=== PATIENT | male | born 1950 | race Caucasian/White ===

== ENCOUNTER 2018-06-03 16:26 | Inpatient (IN) ==
[2018-06-03 17:35] LABS: Basophils # 0.1 10*3/uL (0.0-0.2); Basophils % 0.5 % (0.0-0.8); Eosinophils # 0.2 10*3/uL (0.0-0.87); Eosinophils % 1.5 % (0.00-10.9); Hemoglobin 17.7 GM/DL (14.0-18.0); Immature Granulocytes % 0.3 %; Immature Granulocytes Absolute 0.03 #; Lymphocytes # 1.8 10*3/uL (1.4-4.0); Lymphocytes % 16.1 % (21.2-54.2); Mean Corpuscular Hemoglobin 32 PG (27-34); Mean Corpuscular Volume 94.5 FL (87-102); Mean Platelet Volume 8.6 FL (9.6-12.0); Monocytes # 0.7 10*3/uL (0.11-0.8); Monocytes % 6.3 % (1.7-12.7); Neutrophils # 8.2 10*3/uL (1.4-7.4); Neutrophils % 75.3 % (38.7-73.9); Platelet Count 233 T/CUMM (130-400); Red Cell Distribution Width 12.4 % (9.3-17.3); White Blood Count 10.9 T/CUMM (4-12)
[2018-06-03 17:41] LABS: Apearance,Urine CLEAR (Clear); Bilirubin,Urine Negative (Negative); Blood, Urine Negative (Negative); Glucose,Urine (UA) Negative (Negative); Ketones,Urine 20 mg/dL (Negative); Mucus,Urine Occasional /LPF (Occasional); Nitrite,Urine Negative (Negative); Protein,Urine Negative; RBC,Urine 3 /HPF (0-4); Urine Color Yellow (Yellow); Urine Specific Gravity 1.016 (1.001-1.035); Urine Urobilinogen < 2.0 EU/DL (0.2-1.0); WBC,Urine 1 /HPF (0-6)
[2018-06-03 18:00] LABS: Albumin 4.3 G/DL (3.4-5.0); Bilirubin,Total 0.7 MG/DL (0.2-1.0); Calcium 9.5 MG/DL (8.5-10.1); Osmolality,Calculated 282.4 MOS/KG (273-304); Potassium 4.4 MMOL/L (3.5-5.1); Total Protein 7.9 G/DL (6.4-8.3)
[2018-06-03] MEDS ORDERED: SODIUM CHLORIDE 0.9% 1,000 ML IV STA (18:18)
[2018-06-03] MEDS ORDERED: ONDANSETRON 4 MG/2 ML VIAL IV STA (18:18)
[2018-06-03] MEDS ORDERED: ONDANSETRON 4 MG/2 ML VIAL ONE ×2 (18:24→20:10)
[2018-06-03 19:16] LABS: Lactic Acid 1.1 MMOL/L (0.4-2.0)
[2018-06-03] MEDS ORDERED: DEXTROSE 5% LACTATED RINGERS 1,000 ML IV SCH (20:00)
[2018-06-03] MEDS ORDERED: MORPHINE 4 MG/1 ML VIAL ONE (20:10)
[2018-06-03] MEDS: MORPHINE 4 MG/1 ML VIAL IV PRN ×2 (20:17→23:48)
[2018-06-03] MEDS: LACTATED RINGERS 1,000 ML IV SCH (20:17)
[2018-06-03] MEDS: ONDANSETRON 4 MG/2 ML VIAL IV PRN ×2 (20:18→23:55)
[2018-06-04] MEDS: MORPHINE 4 MG/1 ML VIAL IV PRN ×4 (03:26→20:18)
[2018-06-04] MEDS: LACTATED RINGERS 1,000 ML IV SCH ×3 (03:31→23:08)
[2018-06-04 06:50] LABS: Basophils % 0.4 % (0.0-0.8); Eosinophils # 0.3 10*3/uL (0.0-0.87); Eosinophils % 3.5 % (0.00-10.9); Hematocrit 46.8 VOL% (42.0-52.0); Hemoglobin 15.2 GM/DL (14.0-18.0); Immature Granulocytes % 0.3 %; Immature Granulocytes Absolute 0.03 #; Lymphocytes # 2.1 10*3/uL (1.4-4.0); Mean Corpuscular HGB Conc 32.5 GM/DL (32-36); Mean Corpuscular Hemoglobin 31 PG (27-34); Mean Corpuscular Volume 94.9 FL (87-102); Mean Platelet Volume 8.6 FL (9.6-12.0); Monocytes # 0.9 10*3/uL (0.11-0.8); Monocytes % 10.5 % (1.7-12.7); Neutrophils # 5.6 10*3/uL (1.4-7.4); Neutrophils % 62.3 % (38.7-73.9); Platelet Count 206 T/CUMM (130-400); Red Blood Count 4.93 MC/CUMM (3.8-5.5); Red Cell Distribution Width 12.5 % (9.3-17.3)
[2018-06-04 07:24] LABS: Albumin 3.3 G/DL (3.4-5.0); Bilirubin,Total 0.9 MG/DL (0.2-1.0); Calcium 8.1 MG/DL (8.5-10.1); Osmolality,Calculated 282.3 MOS/KG (273-304); Potassium 4.2 MMOL/L (3.5-5.1); Total Protein 6.4 G/DL (6.4-8.3)
[2018-06-04] MEDS: ENOXAPARIN 40 MG/0.4 ML SYRINGE SUBCUT SCH (20:18)
[2018-06-05] MEDS: ACETAMINOPHEN 500 MG TABLET PO PRN ×2 (05:13→23:10)
[2018-06-05] MEDS: LACTATED RINGERS 1,000 ML IV SCH ×2 (10:00→19:44)
[2018-06-05] MEDS: ENOXAPARIN 40 MG/0.4 ML SYRINGE SUBCUT SCH (22:26)
[2018-06-06] MEDS: LACTATED RINGERS 1,000 ML IV SCH (05:52)
[2018-06-06 11:43] VITALS: BP 109/67
== END 2018-06-06 14:20 | disposition home or self-care (01) | DRG 390 ==
LOC: N.ED 16:26 → N.EDINP 19:37 → N.3E 20:43
PROVIDERS: ADMIT Surgery; ATTEND Surgery

== ENCOUNTER 2021-12-15 12:22 | Inpatient (IN) ==
[~2021-12-15 12:22] MED LIST: CLORAZEPATE 3.75 MG TABLET PO PRN; DEXTROSE 10% 250 ML BAG IV PRN; GLUCAGON 1 MG VIAL IM PRN; MORPHINE 2 MG/1 ML SYRINGE IV PRN; NITROGLYCERIN SL 0.4 MG TABLET SL PRN; SODIUM CHLORIDE 0.9% 1,000 ML IV SCH
[2021-12-15 13:21] LABS: Basophils # 0.1 10*3/uL (0.0-0.2); Basophils % 0.7 % (0.0-0.8); Eosinophils # 0.4 10*3/uL (0.0-0.87); Eosinophils % 4.6 % (0.00-10.9); Hematocrit 40.5 VOL% (42.0-52.0); Hemoglobin 14.2 GM/DL (14.0-18.0); Immature Granulocytes % 0.5 %; Immature Granulocytes Absolute 0.04 #; Lymphocytes # 2.9 10*3/uL (1.4-4.0); Lymphocytes % 37.9 % (21.2-54.2); Mean Corpuscular HGB Conc 35.1 GM/DL (32-36); Mean Corpuscular Volume 91.6 FL (87-102); Mean Platelet Volume 8.6 FL (9.6-12.0); Monocytes % 8.8 % (1.7-12.7); Neutrophils % 47.5 % (38.7-73.9); Platelet Count 231 T/CUMM (130-400); Red Blood Count 4.42 MC/CUMM (3.8-5.5); Red Cell Distribution Width 12.3 % (9.3-17.3); White Blood Count 7.6 T/CUMM (4-12)
[2021-12-15 13:38] LABS: Albumin 3.6 G/DL (3.4-5.0); Bilirubin,Total 0.4 MG/DL (0.20-1.00); Calcium 8.8 MG/DL (8.5-10.1); Osmolality,Calculated 277.8 MOS/KG (273-304); Potassium 4.2 MMOL/L (3.5-5.1); Total Protein 7.5 G/DL (6.4-8.2)
[2021-12-15] MEDS: CHLORHEXIDINE 4% SOLN 118 ML BOTTLE TOP SCH ×2 (15:17→20:39)
[2021-12-15] MEDS ORDERED: CALCIUM CHLORIDE 1,000 MG/10 ML SYRINGE IV ONE (15:32)
[2021-12-15] MEDS ORDERED: PHENYLEPHRINE DRIP 40 MG/250 ML PREMIX IV ONE (15:32)
[2021-12-15] MEDS ORDERED: NITROPRUSSIDE 50 MG/2 ML VIAL ONE (15:32)
[2021-12-15] MEDS ORDERED: POTASSIUM CHLORIDE RIDER 20 MEQ/100 ML PREMIX IV ONE (15:32)
[2021-12-15] MEDS ORDERED: SODIUM BICARBONATE 50 MEQ/50 ML VIAL IV ONE (15:32)
[2021-12-15] MEDS ORDERED: ALBUMIN 5% 12.5 GM/250 ML VIAL IV ONE ×2 (15:33→15:34)
[2021-12-15 18:01] LABS: Arterial Base Excess iSTAT -2 MMOL/L (-2.5-2.5); Arterial Bicarbonate iSTAT 23.3 MMOL/L (20-26); Arterial O2 Saturation iSTAT 96 % (95-100); Arterial PCO2 iSTAT 40 MM HG (35-48); Arterial PO2 iSTAT 85 MM HG (80-95); Arterial Total CO2 iSTAT 25 MMO/L (23-27); Arterial pH iSTAT 7.377 (7.35-7.45)
[2021-12-15] MEDS: CHLORHEXIDINE 0.12% ORAL RINSE 60 ML BOTTLE SWISH/SPIT SCH (20:34)
[2021-12-16] MEDS: CHLORHEXIDINE 4% SOLN 118 ML BOTTLE TOP SCH (04:25)
[2021-12-16] MEDS ORDERED: VANCOMYCIN 1,000 MG VIAL ONE (04:32)
[2021-12-16] MEDS ORDERED: VANCOMYCIN 500 MG VIAL ONE (04:32)
[2021-12-16] MEDS ORDERED: PAPAVERINE 60 MG/2 ML VIAL ONE (04:32)
[2021-12-16] MEDS ORDERED: PANTOPRAZOLE 40 MG TABLET PO ONE (05:00)
[2021-12-16] MEDS ORDERED: CEFUROXIME INJ 1,500 MG in SODIUM CHLORIDE 0.9% 100 ML IV ONE (05:00)
[2021-12-16] MEDS ORDERED: DIAZEPAM 5 MG TABLET PO ONE (05:00)
[2021-12-16] MEDS ORDERED: VECURONIUM 10 MG VIAL IV ONE ×3 (05:50→09:34)
[2021-12-16] MEDS ORDERED: AMINOCAPROIC ACID 5,000 MG/20 ML VIAL ONE (05:50)
[2021-12-16] MEDS ORDERED: CALCIUM CHLORIDE 1,000 MG/10 ML VIAL IV ONE (05:50)
[2021-12-16] MEDS ORDERED: LIDOCAINE 2% 5 ML VIAL ONE ×2 (05:50→10:44)
[2021-12-16] MEDS ORDERED: MIDAZOLAM 10 MG/2 ML VIAL ONE ×4 (05:50→09:34)
[2021-12-16] MEDS ORDERED: SUFentanil 250 MCG/5 ML AMP ONE ×2 (05:51→07:43)
[2021-12-16] MEDS ORDERED: ePHEDrine 50 MG/ML VIAL ONE (07:03)
[2021-12-16 07:34] LABS: ABG Base Excess -0.1 MMOL/L (-2.5-2.5); ABG HCO3 24.4 MMOL/L (20-26); ABG PCO2 40.8 MM HG (35-48); ABG PH 7.392 (7.35-7.45); ABG TCO2 21.8 MMOL/L (23-27); Glucose Heart Surgery 116 MG/DL (74-106); Hematocrit Heart Surgery 38.3 PERCENT (42-52); Hemoglobin Heart Surgery 12.5 G/DL (14.0-18.0); Ionized Calcium Arterial 1.17 MMOL/L (1.21-1.46); PCO2 Patient Temp Arterial 40.8 MMHG; PH Patient Temp Arterial 7.392; Patient Temperature 37 CELCIUS; Potassium Heart/CVR 4.2 MMOL/L (3.5-5.1); Sodium Heart/CVR 141 MMOL/L (135-145)
[2021-12-16 08:23] LABS: RBC,Urine 1 /HPF (0-4); Squamous Epithelial Cell,Urine Occasional /HPF (0-10); Urine Appearance Clear (Clear); Urine Color Straw (Yellow)
[2021-12-16 08:24] LABS: Bilirubin,Urine Negative (Negative); Blood, Urine Trace mg/dL (Negative); Glucose,Urine (UA) Negative (Negative); Ketones,Urine Negative (Negative); Nitrite,Urine Negative (Negative); Protein,Urine Negative (Negative); Urine Urobilinogen 0.2 eU/dL (<2.0)
[2021-12-16] MEDS ORDERED: FAMOTIDINE 20 MG/2 ML VIAL IV ONE (08:49)
[2021-12-16 09:00] LABS: Hematocrit Heart Surgery 25.8 PERCENT (42-52); Hemoglobin Heart Surgery 8.3 G/DL (14.0-18.0); PCO2 Patient Temp Venous 33.7 MM HG; PH Patient Temp Venous 7.466; PO2 Patient Temp Venous 39.1 MM HG; VBG HCO3 25.1 MEQ/L (24-28); VBG PH 7.422; VBG Total CO2 23.6 MMOL/L
[2021-12-16 09:29] LABS: Hematocrit Heart Surgery 29.2 PERCENT (42-52); Hemoglobin Heart Surgery 9.4 G/DL (14.0-18.0); PCO2 Patient Temp Venous 30.7 MM HG; PH Patient Temp Venous 7.504; PO2 Patient Temp Venous 39.4 MM HG; Potassium Heart/CVR 5.8 MMOL/L (3.5-5.1); VBG Base Excess 1.6 MEQ/L (0-4); VBG HCO3 25.7 MEQ/L (24-28); VBG Oxygen Saturation 86.4 %; VBG PCO2 35.5 MMHG (41-51); VBG PH 7.459; VBG PO2 48.4 MMHG (17-40); VBG Total CO2 23.1 MMOL/L
[2021-12-16] MEDS ORDERED: SODIUM CHLORIDE 0.9% 100 ML IV ONE (09:33)
[2021-12-16] MEDS ORDERED: SEVOFLURANE 1 UNIT/15 MINUTE INH ONE (09:33)
[2021-12-16] MEDS ORDERED: SODIUM CHLORIDE 0.9% 250 ML IV ONE (09:33)
[2021-12-16] MEDS ORDERED: SODIUM CHLORIDE 0.9% 1,000 ML IV ONE (09:33)
[2021-12-16] MEDS ORDERED: HEPARIN/NACL 0.9% 2 UNITS/ML 1,000 UNIT/500 ML BAG IV ONE (09:33)
[2021-12-16] MEDS ORDERED: LACTATED RINGERS 1,000 ML IV ONE (09:33)
[2021-12-16] MEDS ORDERED: MINERAL OIL/PETROLATUM OPH OINT 3.5 GM TUBE ONE (09:33)
[2021-12-16] MEDS ORDERED: diphenhydrAMINE 50 MG/1 ML VIAL ONE (09:40)
[2021-12-16] MEDS ORDERED: ESMOLOL 100 MG/10 ML VIAL IV ONE (09:48)
[2021-12-16 09:59] LABS: PCO2 Patient Temp Venous 35.8 MM HG; PH Patient Temp Venous 7.431; PO2 Patient Temp Venous 41.4 MM HG; Potassium Heart/CVR 5.8 MMOL/L (3.5-5.1); VBG Base Excess -0.1 MEQ/L (0-4); VBG Oxygen Saturation 78.7 %; VBG PCO2 35.8 MMHG (41-51); VBG PH 7.431; VBG PO2 41.4 MMHG (17-40); VBG Total CO2 21.7 MMOL/L
[2021-12-16] MEDS ORDERED: THROMBIN TOPICAL (RECOMBINANT) 5,000 UNIT VIAL TOP ONE (10:27)
[2021-12-16] MEDS ORDERED: PROTAMINE SULFATE 250 MG/25 ML VIAL IV ONE (10:44)
[2021-12-16] MEDS ORDERED: HEPARIN 10,000 UNIT/10 ML VIAL ONE (10:44)
[2021-12-16] MEDS ORDERED: DEXTROSE 5% KCL 20 MEQ 20 MEQ/1,000 ML BAG IV ONE (10:44)
[2021-12-16] MEDS ORDERED: MANNITOL 100 GM/500 ML BAG IV ONE (10:44)
[2021-12-16] MEDS ORDERED: FUROSEMIDE 20 MG/2 ML VIAL ONE (10:44)
[2021-12-16] MEDS ORDERED: MAGNESIUM SULFATE 5 GM/10 ML VIAL IV ONE (10:44)
[2021-12-16] MEDS ORDERED: methylPREDNISolone SOD SUC 1,000 MG/8 ML VIAL ONE (10:44)
[2021-12-16] MEDS ORDERED: ALBUMIN 25% 25 GM/100 ML VIAL IV ONE (10:44)
[2021-12-16] MEDS ORDERED: SODIUM BICARBONATE 50 MEQ/50 ML VIAL IV ONE (10:45)
[2021-12-16 10:48] LABS: ABG Base Excess -0.8 MMOL/L (-2.5-2.5); ABG HCO3 23.8 MMOL/L (20-26); ABG PCO2 39.3 MM HG (35-48); ABG PH 7.393 (7.35-7.45); ABG TCO2 21.6 MMOL/L (23-27); Glucose Heart Surgery 197 MG/DL (74-106); Hematocrit Heart Surgery 33.3 PERCENT (42-52); Hemoglobin Heart Surgery 10.8 G/DL (14.0-18.0); Ionized Calcium Arterial 1.22 MMOL/L (1.21-1.46); PCO2 Patient Temp Arterial 39.3 MMHG; PH Patient Temp Arterial 7.393; Patient Temperature 37 CELCIUS; Potassium Heart/CVR 4.2 MMOL/L (3.5-5.1); Sodium Heart/CVR 137 MMOL/L (135-145)
[2021-12-16] MEDS ORDERED: propofoL 200 MG/20 ML VIAL IV ONE (11:00)
[2021-12-16] MEDS ORDERED: INSULIN REGULAR 100 UNIT/ML IV PRN (11:06)
[2021-12-16] MEDS ORDERED: CALCIUM CHLORIDE 1,000 MG/10 ML SYRINGE IV PRN (11:06)
[2021-12-16] MEDS ORDERED: INSULIN REGULAR DRIP 100 ML IV SCH (11:06)
[2021-12-16] MEDS ORDERED: PHENYLEPHRINE DRIP 40 MG/250 ML PREMIX IV PRN (11:06)
[2021-12-16] MEDS ORDERED: MAGNESIUM SULF RIDER 4 GM/100 ML PREMIX IV PRN (11:06)
[2021-12-16] MEDS ORDERED: CHLORHEXIDINE 4% SOLN 118 ML BOTTLE TOP PRN (11:06)
[2021-12-16] MEDS ORDERED: ACETAMINOPHEN 650 MG SUPP RECTAL PRN (11:06)
[2021-12-16] MEDS ORDERED: NITROPRUSSIDE 100 MG in DEXTROSE 5% 250 ML IV PRN (11:06)
[2021-12-16] MEDS ORDERED: MIDAZOLAM 10 MG/2 ML VIAL IV PRN (11:06)
[2021-12-16] MEDS ORDERED: VECURONIUM 10 MG VIAL IV PRN ×2 (11:06)
[2021-12-16] MEDS ORDERED: POTASSIUM CHLORIDE RIDER 10 MEQ/100 ML PREMIX IV PRN (11:06)
[2021-12-16] MEDS ORDERED: MAGNESIUM SULF RIDER 2 GM/50 ML PREMIX IV PRN (11:06)
[2021-12-16] MEDS ORDERED: SODIUM CHLORIDE 0.45% 1,000 ML IV SCH ×2 (11:06)
[2021-12-16] MEDS ORDERED: INSULIN REGULAR 100 UNIT/ML IV ONE (11:06)
[2021-12-16] MEDS ORDERED: ONDANSETRON 4 MG/2 ML VIAL IV PRN (11:06)
[2021-12-16] MEDS ORDERED: LACTATED RINGERS 250 ML IV PRN (11:06)
[2021-12-16] MEDS ORDERED: MIDAZOLAM 2 MG/2 ML VIAL IV PRN (11:06)
[2021-12-16] MEDS ORDERED: DEXTROSE 10% 250 ML BAG IV PRN ×2 (11:18→11:21)
[2021-12-16] MEDS: LACTATED RINGERS 1,000 ML IV PRN ×3 (11:30→16:18)
[2021-12-16] MEDS ORDERED: PROTAMINE SULFATE 50 MG/5 ML VIAL IV ONE (11:36)
[2021-12-16 11:53] LABS: ABG HCO3 24.5 MMOL/L (20-26); ABG Oxygen Saturation 99.7 % (95-100); ABG PCO2 40.4 MM HG (35-48); ABG PH 7.396 (7.35-7.45); ABG TCO2 22.5 MMOL/L (23-27); Glucose Heart Surgery 156 MG/DL (74-106); Hematocrit Heart Surgery 31.9 PERCENT (42-52); Hemoglobin Heart Surgery 10.3 G/DL (14.0-18.0); Potassium Heart/CVR 3.7 MMOL/L (3.5-5.1)
[2021-12-16] MEDS: ALBUMIN 5% 12.5 GM/250 ML VIAL IV PRN ×3 (11:53→18:08)
[2021-12-16 11:56] LABS: Basophils % 0.2 % (0.0-0.8); Eosinophils # 0.1 10*3/uL (0.0-0.87); Hematocrit 29.6 VOL% (42.0-52.0); Hemoglobin 10.2 GM/DL (14.0-18.0); Immature Granulocytes % 0.7 %; Immature Granulocytes Absolute 0.06 #; Lymphocytes # 1.5 10*3/uL (1.4-4.0); Lymphocytes % 18.2 % (21.2-54.2); Mean Corpuscular HGB Conc 34.5 GM/DL (32-36); Mean Corpuscular Volume 93.1 FL (87-102); Mean Platelet Volume 8.8 FL (9.6-12.0); Monocytes % 6.5 % (1.7-12.7); Neutrophils % 73.4 % (38.7-73.9); Platelet Count 147 T/CUMM (130-400); Red Blood Count 3.18 MC/CUMM (3.8-5.5); Red Cell Distribution Width 12.4 % (9.3-17.3); White Blood Count 8.3 T/CUMM (4-12)
[2021-12-16] MEDS: POTASSIUM CHLORIDE RIDER 20 MEQ/100 ML PREMIX IV PRN (12:00)
[2021-12-16 12:06] LABS: INR 1.2; PT Patient Result 13.2 SECS (10.5-12.0); Partial Thromboplastin Time 30.2 SECS (23.8-32.1)
[2021-12-16 12:15] LABS: Albumin 2.7 G/DL (3.4-5.0); Bilirubin,Total 0.7 MG/DL (0.20-1.00); Calcium 8.3 MG/DL (8.5-10.1); Osmolality,Calculated 285.3 MOS/KG (273-304); Potassium 3.8 MMOL/L (3.5-5.1); Total Protein 5.5 G/DL (6.4-8.2)
[2021-12-16 12:26] LABS: CKMB % 9.3 %
[2021-12-16 12:37] LABS: High Sensitive Troponin I* 5973.7 ng/L (0-78)
[2021-12-16 13:21] LABS: ABG Base Excess 0.6 MMOL/L (-2.5-2.5); ABG HCO3 24.9 MMOL/L (20-26); ABG Oxygen Saturation 99.3 % (95-100); ABG PCO2 41.4 MM HG (35-48); ABG PH 7.396 (7.35-7.45); ABG TCO2 23.7 MMOL/L (23-27); Glucose Heart Surgery 164 MG/DL (74-106); Hematocrit Heart Surgery 25.6 PERCENT (42-52); Hemoglobin Heart Surgery 8.2 G/DL (14.0-18.0); Potassium Heart/CVR 4.1 MMOL/L (3.5-5.1)
[2021-12-16] MEDS ORDERED: LACTATED RINGERS 1,000 ML IV PRN (14:25)
[2021-12-16 15:40] LABS: ABG HCO3 25.6 MMOL/L (20-26); ABG Oxygen Saturation 97.3 % (95-100); ABG PCO2 45.9 MM HG (35-48); ABG PH 7.364 (7.35-7.45); ABG PO2 115.3 MM HG (80-95); Glucose Heart Surgery 154 MG/DL (74-106); Hemoglobin Heart Surgery 10.9 G/DL (14.0-18.0); Potassium Heart/CVR 4.1 MMOL/L (3.5-5.1)
[2021-12-16] MEDS: CHLORHEXIDINE 0.12% ORAL RINSE 60 ML BOTTLE SWISH/SPIT SCH (17:31)
[2021-12-16] MEDS ORDERED: DEXMEDETOMIDINE 200 MCG in SODIUM CHLORIDE 0.9% 48 ML IV PRN (17:39)
[2021-12-16 18:07] LABS: ABG Base Excess 0.1 MMOL/L (-2.5-2.5); ABG HCO3 24.6 MMOL/L (20-26); ABG PCO2 49.2 MM HG (35-48); ABG PH 7.338 (7.35-7.45); ABG TCO2 24.2 MMOL/L (23-27); Glucose Heart Surgery 166 MG/DL (74-106); Hematocrit Heart Surgery 31.2 PERCENT (42-52); Hemoglobin Heart Surgery 10.1 G/DL (14.0-18.0); Potassium Heart/CVR 4.3 MMOL/L (3.5-5.1)
[2021-12-16] MEDS: MORPHINE 10 MG/1 ML VIAL IV PRN ×2 (18:36→21:45)
[2021-12-16] MEDS: CEFUROXIME INJ 1,500 MG in SODIUM CHLORIDE 0.9% 100 ML IV SCH (19:43)
[2021-12-16 20:53] LABS: ABG Base Excess -0.9 MMOL/L (-2.5-2.5); ABG HCO3 23.7 MMOL/L (20-26); ABG Oxygen Saturation 98.7 % (95-100); ABG PCO2 48.2 MM HG (35-48); ABG TCO2 23.3 MMOL/L (23-27); Glucose Heart Surgery 190 MG/DL (74-106); Hematocrit Heart Surgery 31.2 PERCENT (42-52); Hemoglobin Heart Surgery 10.1 G/DL (14.0-18.0); Potassium Heart/CVR 4.4 MMOL/L (3.5-5.1)
[2021-12-16] MEDS ORDERED: CHLORHEXIDINE 0.12% ORAL RINSE 60 ML BOTTLE SWISH/SPIT SCH (21:00)
[2021-12-16 22:18] LABS: CKMB % 6.4 %
[2021-12-16 22:20] LABS: High Sensitive Troponin I* 7663.4 ng/L (0-78)
[2021-12-16] MEDS ORDERED: FUROSEMIDE 40 MG/4 ML VIAL IV PRN (23:02)
[2021-12-16 23:40] LABS: ABG Base Excess -1.4 MMOL/L (-2.5-2.5); ABG HCO3 23.2 MMOL/L (20-26); ABG PCO2 45.2 MM HG (35-48); ABG PH 7.342 (7.35-7.45); ABG TCO2 22.3 MMOL/L (23-27); Glucose Heart Surgery 206 MG/DL (74-106); Hematocrit Heart Surgery 31.8 PERCENT (42-52); Hemoglobin Heart Surgery 10.3 G/DL (14.0-18.0); Potassium Heart/CVR 4.3 MMOL/L (3.5-5.1)
[2021-12-16] MEDS: INSULIN REGULAR 100 UNIT/ML SUBCUT SCH (23:50)
[2021-12-17 00:25] LABS: ABG HCO3 23.5 MMOL/L (20-26); ABG Oxygen Saturation 97.5 % (95-100); ABG PCO2 43.5 MM HG (35-48); ABG PH 7.351 (7.35-7.45); ABG PO2 114.1 MM HG (80-95); ABG TCO2 24.9 MMOL/L (23-27); Glucose Heart Surgery 199 MG/DL (74-106); Hemoglobin Heart Surgery 11.1 G/DL (14.0-18.0)
[2021-12-17 01:24] LABS: ABG Base Excess -1.7 MMOL/L (-2.5-2.5); ABG Oxygen Saturation 98.6 % (95-100); ABG PCO2 46.9 MM HG (35-48); ABG PH 7.326 (7.35-7.45); ABG TCO2 22.4 MMOL/L (23-27); Glucose Heart Surgery 210 MG/DL (74-106); Hematocrit Heart Surgery 31.7 PERCENT (42-52); Hemoglobin Heart Surgery 10.3 G/DL (14.0-18.0)
[2021-12-17] MEDS: LACTATED RINGERS 1,000 ML IV PRN (02:43)
[2021-12-17 04:04] LABS: ABG Base Excess 0.5 MMOL/L (-2.5-2.5); ABG HCO3 24.9 MMOL/L (20-26); ABG Oxygen Saturation 97.6 % (95-100); ABG PCO2 46.3 MM HG (35-48); ABG PH 7.361 (7.35-7.45); ABG TCO2 24.1 MMOL/L (23-27); Glucose Heart Surgery 174 MG/DL (74-106); Hematocrit Heart Surgery 29.2 PERCENT (42-52); Hemoglobin Heart Surgery 9.4 G/DL (14.0-18.0); Potassium Heart/CVR 3.8 MMOL/L (3.5-5.1)
[2021-12-17 04:05] LABS: Hemoglobin 9.4 GM/DL (14.0-18.0); Immature Granulocytes % 0.6 %; Immature Granulocytes Absolute 0.05 #; Lymphocytes # 0.7 10*3/uL (1.4-4.0); Lymphocytes % 7.6 % (21.2-54.2); Mean Corpuscular HGB Conc 34.8 GM/DL (32-36); Mean Corpuscular Volume 90.9 FL (87-102); Mean Platelet Volume 8.9 FL (9.6-12.0); Monocytes % 8.2 % (1.7-12.7); Neutrophils % 83.6 % (38.7-73.9); Platelet Count 157 T/CUMM (130-400); Red Blood Count 2.97 MC/CUMM (3.8-5.5); Red Cell Distribution Width 13.9 % (9.3-17.3); White Blood Count 8.6 T/CUMM (4-12)
[2021-12-17] MEDS: INSULIN REGULAR 100 UNIT/ML SUBCUT SCH ×6 (04:09→23:12)
[2021-12-17 04:22] LABS: CKMB % 4.7 %
[2021-12-17 04:23] LABS: High Sensitive Troponin I* 6275.6 ng/L (0-78)
[2021-12-17 04:27] LABS: Albumin 3.6 G/DL (3.4-5.0); Bilirubin,Direct 0.2 MG/DL (0.0-0.20); Bilirubin,Total 0.6 MG/DL (0.20-1.00); Calcium 8.4 MG/DL (8.5-10.1); Osmolality,Calculated 290.1 MOS/KG (273-304); Potassium 3.8 MMOL/L (3.5-5.1); Total Protein 6.1 G/DL (6.4-8.2)
[2021-12-17] MEDS: POTASSIUM CHLORIDE RIDER 20 MEQ/100 ML PREMIX IV PRN (05:00)
[2021-12-17 06:32] LABS: Hemoglobin 10.3 GM/DL (14.0-18.0)
[2021-12-17] MEDS: CEFUROXIME INJ 1,500 MG in SODIUM CHLORIDE 0.9% 100 ML IV SCH ×2 (07:25→21:37)
[2021-12-17] MEDS ORDERED: ALUMINUM/MAGNES/SIMETH MAX STR 30 ML UDCUP PO PRN (07:44)
[2021-12-17] MEDS ORDERED: MAGNESIUM HYDROXIDE SUSP 30 ML UDCUP PO PRN (07:44)
[2021-12-17] MEDS ORDERED: ZALEPLON 5 MG CAPSULE PO PRN (07:44)
[2021-12-17] MEDS ORDERED: GLUCAGON 1 MG VIAL IM PRN (07:44)
[2021-12-17] MEDS ORDERED: DEXTROSE 10% 250 ML BAG IV PRN (07:44)
[2021-12-17] MEDS ORDERED: MAGNESIUM SULF RIDER 2 GM/50 ML PREMIX IV PRN (07:44)
[2021-12-17] MEDS ORDERED: ACETAMINOPHEN 325 MG TABLET PO PRN (07:44)
[2021-12-17] MEDS ORDERED: ONDANSETRON 4 MG/2 ML VIAL IV PRN (07:44)
[2021-12-17] MEDS ORDERED: POTASSIUM CHLORIDE 20 MEQ TABLET PO PRN (07:44)
[2021-12-17] MEDS ORDERED: MAGNESIUM SULF RIDER 4 GM/100 ML PREMIX IV PRN (07:44)
[2021-12-17] MEDS: DOCUSATE SODIUM 100 MG CAPSULE PO SCH (08:16)
[2021-12-17] MEDS: ASPIRIN EC 81 MG TABLET PO SCH (08:16)
[2021-12-17] MEDS: ESCITALOPRAM 10 MG TABLET PO SCH (08:16)
[2021-12-17] MEDS: FERROUS SULFATE 325 MG TABLET PO SCH (08:16)
[2021-12-17] MEDS: PANTOPRAZOLE 40 MG TABLET PO SCH (08:17)
[2021-12-17] MEDS: ROSUVASTATIN 20 MG TABLET PO SCH (08:17)
[2021-12-17] MEDS: CHLORHEXIDINE 0.12% ORAL RINSE 60 ML BOTTLE SWISH/SPIT SCH ×2 (08:40→21:37)
[2021-12-17] MEDS: oxyCODONE/ACETAMINOPHEN 5-325 MG TABLET PO PRN ×3 (08:48→23:36)
[2021-12-17] MEDS: SODIUM CHLOR 0.45% KCL 20 MEQ 20 MEQ/1,000 ML BAG IV SCH (10:48)
[2021-12-17] MEDS: ASCORBIC ACID 500 MG TABLET PO SCH ×2 (11:54→21:37)
[2021-12-17 12:13] LABS: CKMB % 2.9 %; High Sensitive Troponin I* 4450.3 ng/L (0-78)
[2021-12-18] MEDS: INSULIN REGULAR 100 UNIT/ML SUBCUT SCH ×5 (05:04→21:10)
[2021-12-18 05:51] LABS: Basophils % 0.1 % (0.0-0.8); Hematocrit 28.4 VOL% (42.0-52.0); Hemoglobin 9.3 GM/DL (14.0-18.0); Immature Granulocytes % 0.8 %; Lymphocytes # 1.4 10*3/uL (1.4-4.0); Lymphocytes % 11.3 % (21.2-54.2); Mean Corpuscular HGB Conc 32.7 GM/DL (32-36); Mean Corpuscular Volume 95.9 FL (87-102); Mean Platelet Volume 9.6 FL (9.6-12.0); Monocytes % 11.1 % (1.7-12.7); Neutrophils % 76.7 % (38.7-73.9); Platelet Count 145 T/CUMM (130-400); Red Blood Count 2.96 MC/CUMM (3.8-5.5); White Blood Count 11.9 T/CUMM (4-12)
[2021-12-18] MEDS ORDERED: FUROSEMIDE 40 MG/4 ML VIAL IV ONE (06:00)
[2021-12-18 06:08] LABS: Albumin 2.9 G/DL (3.4-5.0); Bilirubin,Direct 0.18 MG/DL (0.0-0.20); Bilirubin,Total 0.8 MG/DL (0.20-1.00); Calcium 8.5 MG/DL (8.5-10.1); Osmolality,Calculated 280.7 MOS/KG (273-304); Potassium 4.5 MMOL/L (3.5-5.1); Total Protein 5.9 G/DL (6.4-8.2)
[2021-12-18 06:11] LABS: Albumin 2.9 G/DL (3.4-5.0); Bilirubin,Direct 0.17 MG/DL (0.0-0.20); Bilirubin,Indirect 0.5 MG/DL (0.0-1.0); Bilirubin,Total 0.7 MG/DL (0.20-1.00); CKMB % 1.5 %; Total Protein 6.1 G/DL (6.4-8.2)
[2021-12-18] MEDS: oxyCODONE/ACETAMINOPHEN 5-325 MG TABLET PO PRN ×2 (06:45→14:14)
[2021-12-18] MEDS ORDERED: LIDOCAINE 1% 20 ML VIAL MISC INJ ONE (06:51)
[2021-12-18] MEDS: POLYETHYLENE GLYCOL POWDER 17 GM PACK PO SCH (10:11)
[2021-12-18] MEDS: DOCUSATE SODIUM 100 MG CAPSULE PO SCH (10:11)
[2021-12-18] MEDS: ASPIRIN EC 81 MG TABLET PO SCH (10:11)
[2021-12-18] MEDS: ESCITALOPRAM 10 MG TABLET PO SCH (10:11)
[2021-12-18] MEDS: FERROUS SULFATE 325 MG TABLET PO SCH (10:12)
[2021-12-18] MEDS: ASCORBIC ACID 500 MG TABLET PO SCH ×2 (10:12→20:56)
[2021-12-18] MEDS: ROSUVASTATIN 20 MG TABLET PO SCH (10:12)
[2021-12-18] MEDS: PANTOPRAZOLE 40 MG TABLET PO SCH (10:12)
[2021-12-18] MEDS: CHLORHEXIDINE 0.12% ORAL RINSE 60 ML BOTTLE SWISH/SPIT SCH ×2 (10:15→20:57)
[2021-12-18] MEDS: SODIUM CHLOR 0.45% KCL 20 MEQ 20 MEQ/1,000 ML BAG IV SCH (10:22)
[2021-12-19] MEDS: INSULIN REGULAR 100 UNIT/ML SUBCUT SCH (00:06)
[2021-12-19 05:55] LABS: Basophils % 0.1 % (0.0-0.8); Eosinophils # 0.1 10*3/uL (0.0-0.87); Eosinophils % 0.4 % (0.00-10.9); Hematocrit 30.4 VOL% (42.0-52.0); Hemoglobin 9.9 GM/DL (14.0-18.0); Immature Granulocytes Absolute 0.13 #; Lymphocytes # 2.1 10*3/uL (1.4-4.0); Lymphocytes % 15.2 % (21.2-54.2); Mean Corpuscular HGB Conc 32.6 GM/DL (32-36); Mean Corpuscular Volume 96.2 FL (87-102); Mean Platelet Volume 9.6 FL (9.6-12.0); Monocytes % 9.7 % (1.7-12.7); Neutrophils % 73.6 % (38.7-73.9); Platelet Count 160 T/CUMM (130-400); Red Blood Count 3.16 MC/CUMM (3.8-5.5); Red Cell Distribution Width 13.3 % (9.3-17.3); White Blood Count 13.6 T/CUMM (4-12)
[2021-12-19 06:17] LABS: Albumin 3.2 G/DL (3.4-5.0); Bilirubin,Direct 0.21 MG/DL (0.0-0.20); Bilirubin,Total 0.8 MG/DL (0.20-1.00); Calcium 8.6 MG/DL (8.5-10.1); Osmolality,Calculated 278.8 MOS/KG (273-304); Potassium 4.2 MMOL/L (3.5-5.1); Total Protein 6.6 G/DL (6.4-8.2)
[2021-12-19 06:19] LABS: Alanine Aminotransferase 26 U/L (16-61); Albumin 3.2 G/DL (3.4-5.0); Alkaline Phosphatase 61 U/L (45-117); Aspartate Amino Transferase 30 U/L (0-37); Bilirubin,Indirect 0.6 MG/DL (0.0-1.0); Total Protein 6.5 G/DL (6.4-8.2)
[2021-12-19] MEDS: POLYETHYLENE GLYCOL POWDER 17 GM PACK PO SCH (09:10)
[2021-12-19] MEDS: PANTOPRAZOLE 40 MG TABLET PO SCH (09:11)
[2021-12-19] MEDS: FERROUS SULFATE 325 MG TABLET PO SCH (09:11)
[2021-12-19] MEDS: DOCUSATE SODIUM 100 MG CAPSULE PO SCH (09:11)
[2021-12-19] MEDS: ASPIRIN EC 81 MG TABLET PO SCH (09:11)
[2021-12-19] MEDS: ROSUVASTATIN 20 MG TABLET PO SCH (09:11)
[2021-12-19] MEDS: ASCORBIC ACID 500 MG TABLET PO SCH ×2 (09:11→20:50)
[2021-12-19] MEDS: ESCITALOPRAM 10 MG TABLET PO SCH (09:12)
[2021-12-19] MEDS: CHLORHEXIDINE 0.12% ORAL RINSE 60 ML BOTTLE SWISH/SPIT SCH ×2 (09:15→20:50)
[2021-12-19] MEDS: oxyCODONE/ACETAMINOPHEN 5-325 MG TABLET PO PRN (20:52)
[2021-12-20 05:40] LABS: Basophils % 0.2 % (0.0-0.8); Eosinophils # 0.3 10*3/uL (0.0-0.87); Eosinophils % 2.4 % (0.00-10.9); Hematocrit 29.6 VOL% (42.0-52.0); Hemoglobin 9.3 GM/DL (14.0-18.0); Immature Granulocytes % 1.2 %; Immature Granulocytes Absolute 0.12 #; Lymphocytes # 1.8 10*3/uL (1.4-4.0); Lymphocytes % 17.6 % (21.2-54.2); Mean Corpuscular HGB Conc 31.4 GM/DL (32-36); Mean Platelet Volume 9.2 FL (9.6-12.0); Monocytes % 9.8 % (1.7-12.7); Neutrophils % 68.8 % (38.7-73.9); Platelet Count 188 T/CUMM (130-400); Red Blood Count 3.05 MC/CUMM (3.8-5.5); Red Cell Distribution Width 13.2 % (9.3-17.3); White Blood Count 10.2 T/CUMM (4-12)
[2021-12-20 06:05] LABS: Albumin 2.8 G/DL (3.4-5.0); Bilirubin,Total 0.5 MG/DL (0.20-1.00); Calcium 8.3 MG/DL (8.5-10.1); Osmolality,Calculated 278.7 MOS/KG (273-304); Potassium 4.2 MMOL/L (3.5-5.1); Total Protein 6.4 G/DL (6.4-8.2)
[2021-12-20] MEDS: ROSUVASTATIN 20 MG TABLET PO SCH (08:45)
[2021-12-20] MEDS: PANTOPRAZOLE 40 MG TABLET PO SCH (08:45)
[2021-12-20] MEDS: ASCORBIC ACID 500 MG TABLET PO SCH ×2 (08:45→20:35)
[2021-12-20] MEDS: FERROUS SULFATE 325 MG TABLET PO SCH (08:45)
[2021-12-20] MEDS: ESCITALOPRAM 10 MG TABLET PO SCH (08:46)
[2021-12-20] MEDS: ASPIRIN EC 81 MG TABLET PO SCH (08:46)
[2021-12-20] MEDS: DOCUSATE SODIUM 100 MG CAPSULE PO SCH (08:46)
[2021-12-20] MEDS: CHLORHEXIDINE 0.12% ORAL RINSE 60 ML BOTTLE SWISH/SPIT SCH ×2 (08:47→20:35)
[2021-12-20] MEDS: POLYETHYLENE GLYCOL POWDER 17 GM PACK PO SCH (08:48)
[2021-12-20] MEDS: oxyCODONE/ACETAMINOPHEN 5-325 MG TABLET PO PRN (17:48)
[2021-12-20] MEDS: carvediloL 3.125 MG TABLET PO SCH (20:35)
[2021-12-21] MEDS: oxyCODONE/ACETAMINOPHEN 5-325 MG TABLET PO PRN (03:47)
[2021-12-21 05:09] LABS: Basophils % 0.3 % (0.0-0.8); Eosinophils # 0.6 10*3/uL (0.0-0.87); Eosinophils % 5.9 % (0.00-10.9); Hematocrit 33.1 VOL% (42.0-52.0); Hemoglobin 10.5 GM/DL (14.0-18.0); Immature Granulocytes % 1.8 %; Immature Granulocytes Absolute 0.19 #; Lymphocytes # 2.8 10*3/uL (1.4-4.0); Lymphocytes % 27.3 % (21.2-54.2); Mean Corpuscular HGB Conc 31.7 GM/DL (32-36); Mean Corpuscular Volume 96.8 FL (87-102); Mean Platelet Volume 8.9 FL (9.6-12.0); Monocytes % 11.3 % (1.7-12.7); Neutrophils % 53.4 % (38.7-73.9); Platelet Count 250 T/CUMM (130-400); Red Blood Count 3.42 MC/CUMM (3.8-5.5); Red Cell Distribution Width 13.2 % (9.3-17.3); White Blood Count 10.3 T/CUMM (4-12)
[2021-12-21 05:31] LABS: Alanine Aminotransferase 124 U/L (16-61); Albumin 2.7 G/DL (3.4-5.0); Alkaline Phosphatase 100 U/L (45-117); Aspartate Amino Transferase 91 U/L (0-37); Bilirubin,Indirect 0.5 MG/DL (0.0-1.0); Blood Urea Nitrogen 21 MG/DL (7-18); Calcium 8.6 MG/DL (8.5-10.1); Carbon Dioxide 28 MMOL/L (21-32); Estimated Glom Filtration Rate 86 ML/MIN; Glucose 108 MG/DL (74-106); Osmolality,Calculated 278.7 MOS/KG (273-304); Potassium 4.1 MMOL/L (3.5-5.1); Sodium 138 MMOL/L (136-145); Total Protein 6.4 G/DL (6.4-8.2)
[2021-12-21] MEDS: POLYETHYLENE GLYCOL POWDER 17 GM PACK PO SCH (10:01)
[2021-12-21] MEDS: ROSUVASTATIN 20 MG TABLET PO SCH (10:01)
[2021-12-21] MEDS: DOCUSATE SODIUM 100 MG CAPSULE PO SCH (10:02)
[2021-12-21] MEDS: carvediloL 3.125 MG TABLET PO SCH (10:03)
[2021-12-21] MEDS: FERROUS SULFATE 325 MG TABLET PO SCH (10:03)
[2021-12-21] MEDS: ASCORBIC ACID 500 MG TABLET PO SCH (10:03)
[2021-12-21] MEDS: ESCITALOPRAM 10 MG TABLET PO SCH (10:04)
[2021-12-21] MEDS: PANTOPRAZOLE 40 MG TABLET PO SCH (10:04)
[2021-12-21] MEDS: ASPIRIN EC 81 MG TABLET PO SCH (10:04)
[2021-12-21] MEDS: CHLORHEXIDINE 0.12% ORAL RINSE 60 ML BOTTLE SWISH/SPIT SCH (10:11)
[2021-12-21 11:42] VITALS: BP 112/70
== END 2021-12-21 10:50 | disposition home health service (06) | DRG 236 ==
LOC: N.OR 12:22 → N.3E 12:23 → EDSTATUS 12-16 07:30 → N.CVR 12-16 11:00 → N.ICU 12-17 07:14 → N.TELES 12-17 08:52